=== PATIENT | female | born 1985 | race Asian ===

== ENCOUNTER 2016-12-13 18:13 | Emergency (ER) | payer MEDICAID ==
[2016-12-13 18:47] VITALS: BP 125/76
[2016-12-13] MEDS ORDERED: TRAMADOL HCL 50 MG TABLET PO ONE (19:13)
--- NOTE | 2016-12-13 19:14 | ER Document Report ---
ED Medical Screen (RME) - General Chief Complaint: Ankle Swelling Stated Complaint: LEG AND FEET PAIN, SWELLING Time Seen by Provider: 12/13/16 19:13 Notes: Patient reports 2 days of bilateral leg swelling. She states her legs feel tight and hurt. She says they have been swelling equally. She states that she has had no chest pain or shortness of breath. No history of DVTs. No cough or cold. She states she has not missed any menstrual cycles. She has not had a similar problem previously. She states she has not gained any weight and does not believe she is retaining fluid anywhere else. TRAVEL OUTSIDE OF THE [place] IN LAST 30 DAYS: No - Related Data Allergies/Adverse Reactions: No Known Allergies Allergy (Verified 12/13/16 18:45) Past Medical History Renal/ Medical History: Denies: Hx Peritoneal Dialysis Musculoskeltal Medical History: Reports Hx Fibromyalgia Psychiatric Medical History: Reports: Hx Bipolar Disorder, Hx Depression Past Surgical History: Reports: Hx Gynecologic Surgery - Immunizations Hx Diphtheria, Pertussis, Tetanus Vaccination: No Physical Exam - Vital signs Vitals: Temp Pulse BP Pulse Ox 98.4 F 92 125/76 99 12/13/16 18:46 12/13/16 18:46 12/13/16 18:46 12/13/16 18:46 Course - Vital Signs Vital signs: Temp Pulse Resp BP Pulse Ox 98.4 F 92 125/76 99 12/13/16 18:46 12/13/16 18:46 12/13/16 18:46 12/13/16 18:46
[2016-12-13 20:08] LABS: APPEARANCE,URINE SLIGHTLY-CLOUDY; BILIRUBIN,URINE NEGATIVE (NEGATIVE); GLUCOSE, URINE NEGATIVE (NEGATIVE); KETONES,URINE 20 mg/dL (NEGATIVE); LEUKOCYTE ESTERASE,URINE NEGATIVE (NEGATIVE); NITRITE,URINE POSITIVE (NEGATIVE); PROTEIN,URINE 30 mg/dL (NEGATIVE); URINE SPECIFIC GRAVITY 1.025
--- NOTE | 2016-12-13 20:08 | ER Document Report ---
ED Extremity Problem, Lower - General Chief Complaint: Ankle Swelling Stated Complaint: LEG AND FEET PAIN, SWELLING Time Seen by Provider: 12/13/16 19:13 Mode of Arrival: Ambulatory Information source: Patient Notes: Patient presents complaining of bilateral lower extremity swelling and pain for the past 4 days. Patient denies any chest pain or shortness of breath. Patient denies any recent travel or immobilization. Patient denies any history of PE or DVT in the past. Patient states that she was recently released after 2 -1/2 years in shelter. Patient states that while she was in shelter she had been treated for a UTI. TRAVEL OUTSIDE OF THE [place] IN LAST 30 DAYS: No - HPI Patient complains to provider of: Pain, Swelling Location: Leg Occurred: Other - 4 days Onset/Duration: Gradual Quality of pain: Achy, Sharp Pain Level: 4 Context: denies: Recent immobilization, Recent surgery, Recent travel Recent injury: No Associated symptoms: denies: Chest pain, Fever, Short of breath, Sweaty, Unable to bear weight, Weak Exacerbated by: Nothing Relieved by: Nothing - Related Data Allergies/Adverse Reactions: No Known Allergies Allergy (Verified 12/13/16 18:45) Past Medical History - General Information source: Patient - Social History Smoking Status: Current Every Day Smoker Frequency of alcohol use: None Drug Abuse: None Occupation: None Family History: Reviewed & Not Pertinent Patient has suicidal ideation: No Patient has homicidal ideation: No Renal/ Medical History: Denies: Hx Peritoneal Dialysis Musculoskeltal Medical History: Reports Hx Fibromyalgia Psychiatric Medical History: Reports: Hx Bipolar Disorder, Hx Depression Past Surgical History: Reports: Hx Gynecologic Surgery - Immunizations Hx Diphtheria, Pertussis, Tetanus Vaccination: No Review of Systems - Review of Systems Constitutional: Recent illness - Recent UTI. denies: Fever EENT: No symptoms reported Cardiovascular: No symptoms reported Respiratory: No symptoms reported. denies: Cough, Short of breath Gastrointestinal: No symptoms reported. denies: Abdominal pain, Vomiting Genitourinary: No symptoms reported. denies: Dysuria, Flank pain Female Genitourinary: No symptoms reported Musculoskeletal: Muscle pain - Bilateral lower extremities, Leg swelling. denies: Back pain Skin: No symptoms reported Hematologic/Lymphatic: No symptoms reported Neurological/Psychological: No symptoms reported Physical Exam - Vital signs Vitals: Temp Pulse BP Pulse Ox 98.4 F 92 125/76 99 12/13/16 18:46 12/13/16 18:46 12/13/16 18:46 12/13/16 18:46 - General General appearance: Appears well, Alert In distress: None - HEENT Head: Normocephalic, Atraumatic Eyes: Normal Conjunctiva: Normal Nasal: Normal Mouth/Lips: Normal Mucous membranes: Normal Neck: Normal, Supple. No: Lymphadenopathy - Respiratory Respiratory status: No respiratory distress Chest status: Nontender Breath sounds: Normal. No: Rales, Rhonchi, Stridor, Wheezing Chest palpation: Normal - Cardiovascular Rhythm: Regular. No: Tachycardia Heart sounds: S1 appreciated, S2 appreciated Murmur: No - Back Back: Normal, Nontender - Extremities General upper extremity: Normal inspection, Normal ROM General lower extremity: Tender, Edema - bilat calves, ankles, feet, Normal color, Normal strength, Normal temperature - Neurological Neuro grossly intact: Yes Cognition: Normal Juan David Coma Scale Eye Opening: Spontaneous [place] Coma Scale Verbal: Oriented [place] Coma Scale Motor: Obeys Commands [place] Coma Scale Total: 15 - Psychological Associated symptoms: Normal affect, Normal mood - Skin Skin Temperature: Warm Skin Moisture: Dry Skin Color: Normal Skin irregularity: other - Track shelby to bilateral upper extremities Course - Re-evaluation Re-evalutation: 12/13/16 23:44 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 Agrees with plan to give short course of diuretic. Patient tearful crying demanding that she get pain medication while here. Patient only 5 minutes prior had been sleeping soundly and snoring when provider had come by patient's room. - Vital Signs Vital signs: Temp Pulse Resp BP Pulse Ox 98.4 F 92 125/76 99 12/13/16 18:46 12/13/16 18:46 12/13/16 18:46 12/13/16 18:46 - Laboratory Result Diagrams: 12/13/16 20:25 12/13/16 20:25 Laboratory results interpreted by me: 12/13/16 12/13/16 12/13/16 19:40 20:25 20:25 AST 48 H NT-Pro-B Natriuret Pep 247 H Urine Protein 30 H Urine Ketones 20 H Urine Blood SMALL H Urine Nitrite POSITIVE H Urine Urobilinogen 2.0 H Labs- Entire Visit 12/13/16 12/13/16 12/13/16 19:40 20:25 20:25 WBC 6.2 RBC 4.14 Hgb 13.2 Hct 39.0 MCV 94 MCH 32.0 MCHC 33.9 RDW 13.3 Plt Count 260 Seg Neutrophils % 54.3 Lymphocytes % 33.8 Monocytes % 7.4 Eosinophils % 3.9 Basophils % 0.6 Absolute Neutrophils 3.4 Absolute Lymphocytes 2.1 Absolute Monocytes 0.5 Absolute Eosinophils 0.2 Absolute Basophils 0.0 Sodium 143.3 Potassium 4.1 Chloride 105 Carbon Dioxide 24 Anion Gap 14 BUN 8 Creatinine 0.72 Est GFR ( Amer) > 60 Est GFR (Non-Af Amer) > 60 Glucose 83 Calcium 9.9 Total Bilirubin 0.7 Direct Bilirubin 0.4 Indirect Bilirubin Not Reportable Neonat Total Bilirubin Not Reportable AST 48 H ALT 39 Alkaline Phosphatase 45 NT-Pro-B Natriuret Pep Total Protein 7.2 Albumin 4.3 Urine Color YELLOW Urine Appearance SLIGHTLY-CLOUDY Urine pH 7.0 Ur Specific [place] 1.025 Urine Protein 30 H Urine Glucose (UA) NEGATIVE Urine Ketones 20 H Urine Blood SMALL H Urine Nitrite POSITIVE H Urine Bilirubin NEGATIVE Urine Urobilinogen 2.0 H Ur Leukocyte Esterase NEGATIVE Urine WBC (Auto) 2 Urine RBC (Auto) 8 Urine Bacteria (Auto) 2+ Squamous Epi Cells Auto 2 Urine Mucus (Auto) MANY Urine Ascorbic Acid NEGATIVE Urine HCG, Qual NEGATIVE 12/13/16 20:25 WBC RBC Hgb Hct MCV MCH MCHC RDW Plt Count Seg Neutrophils % Lymphocytes % Monocytes % Eosinophils % Basophils % Absolute Neutrophils Absolute Lymphocytes Absolute Monocytes Absolute Eosinophils Absolute Basophils Sodium Potassium Chloride Carbon Dioxide Anion Gap BUN Creatinine Est GFR ( Amer) Est GFR (Non-Af Amer) Glucose Calcium Total Bilirubin Direct Bilirubin Indirect Bilirubin Neonat Total Bilirubin AST ALT Alkaline Phosphatase NT-Pro-B Natriuret Pep 247 H Total Protein Albumin Urine Color Urine Appearance Urine pH Ur Specific [place] Urine Protein Urine Glucose (UA) Urine Ketones Urine Blood Urine Nitrite Urine Bilirubin Urine Urobilinogen Ur Leukocyte Esterase Urine WBC (Auto) Urine RBC (Auto) Urine Bacteria (Auto) Squamous Epi Cells Auto Urine Mucus (Auto) Urine Ascorbic Acid Urine HCG, Qual - Diagnostic Test Radiology reviewed: Reports reviewed Discharge - Discharge Clinical Impression: Peripheral edema, Leg pain, bilateral UTI (urinary tract infection) Qualifiers: Urinary tract infection type: site unspecified Hematuria presence: with hematuria Qualified Code(s): N39.0 - Urinary tract infection, site not specified Condition: Stable Disposition: HOME, SELF-CARE Instructions: Anti-Inflammatory Medication ([facility]), Lasix, Trimethoprim-Sulfa ( [facility]), Urinary Tract Infection ([facility]) Additional Instructions: Return immediately for any new or worsening symptoms Followup with your primary care provider, call tomorrow to make a followup appointment wear compression stockings to help with leg swelling Elevate your extremities when you are not up Prescriptions: Furosemide [Lasix 20 mg Tablet] 20 mg PO DAILY #4 tablet Naproxen [Naprosyn 250 Nmg Tablet] 1 tab PO BID #14 tablet Sulfamethoxazole/Trimethoprim [Bactrim Ds Tablet] 1 each PO BID #10 tablet Forms: Return to School Referrals: [facility] [Provider Group] - Follow up tomorrow
[2016-12-13 20:38] LABS: ABSOLUTE EOSINOPHILS # (AUTO) 0.2 10^3/uL (0.0-0.6); ABSOLUTE LYMPHOCYTES (AUTO) 2.1 10^3/uL (0.5-4.7); ABSOLUTE MONOCYTES (AUTO) 0.5 10^3/uL (0.1-1.4); ABSOLUTE NEUT (AUTO) 3.4 10^3/uL (1.7-8.2); BASOPHILS % (AUTO) 0.6 % (0-2); EOSINOPHILS % (AUTO) 3.9 % (0-6); HEMOGLOBIN 13.2 g/dL (12.0-15.5); HGB HCT DIFFERENCE 0.6; LYMPHOCYTES % (AUTO) 33.8 % (13-45); MEAN CORPUSCULAR HGB CONC 33.9 g/dL (32.0-36.0); MEAN CORPUSCULAR VOLUME 94 fl (80-97); MONOCYTES % (AUTO) 7.4 % (3-13); RED BLOOD COUNT 4.14 10^6/uL (3.72-5.28); RED CELL DISTRIBUTION WIDTH 13.3 % (11.5-14.0); SEGMENTED NEUTROPHILS % (AUTO) 54.3 % (42-78); WHITE BLOOD COUNT 6.2 10^3/uL (4.0-10.5)
[2016-12-13 21:03] LABS: ALANINE AMINOTRANSFERASE 39 U/L (9-52); ALBUMIN 4.3 g/dL (3.5-5.0); ALKALINE PHOSPHATASE 45 U/L (38-126); ANION GAP 14 (5-19); ASPARTATE AMINO TRANSFERASE 48 U/L (14-36); BILIRUBIN,DIRECT 0.4 mg/dL (0.0-0.4); BILIRUBIN,TOTAL 0.7 mg/dL (0.2-1.3); BLOOD UREA NITROGEN 8 mg/dL (7-20); CALCIUM 9.9 mg/dL (8.4-10.2); CARBON DIOXIDE 24 mmol/L (22-30); CHLORIDE 105 mmol/L (98-107); CREATININE RESULT 0.72 mg/dL (0.52-1.25); GLUCOSE 83 mg/dL (75-110); POTASSIUM 4.1 mmol/L (3.6-5.0); SODIUM 143.3 mmol/L (137-145); TOTAL PROTEIN 7.2 g/dL (6.3-8.2)
[2016-12-13] MEDS ORDERED: SULFAMETHOXAZOLE/TRIMETHOPRIM 800-160 MG TABLET PO ONE (23:49)
[2016-12-14] MEDS ORDERED: SULFAMETHOXAZOLE/TRIMETHOPRIM 800-160 MG TABLET PO ONE (00:12)
[2016-12-14] MEDS ORDERED: FUROSEMIDE 20 MG TABLET PO ONE (00:12)
[2016-12-14] MEDS ORDERED: NAPROXEN 250 MG TABLET PO ONE (00:13)
--- NOTE | 2016-12-14 12:13 | XCELERA REPORT ---
[address] [address] Lower Extremity Venous Evaluation Name: JULIA SLAUGHTER Age: 31 yrs Gender: Female : 1985 Patient Status: Emergency Patient Location: ER Study Date: 12/13/2016 09:12 PM Procedure: Color flow and duplex imaging bilaterally of the veins of the lower extremities as well as the Common Femoral veins. Reason For Study: bilat LE pain, swelling Ordering Physician: MARISOL LOOB Performed By: Arlene Alicea Right Sided Venous Evaluation Normal vessel filling wall to wall, compression and augmentation as well as Colour flow down to the infrageniculate veins. Left Sided Venous Evaluation Normal vessel filling wall to wall, compression and augmentation as well as Colour flow down to the infrageniculate veins. Critical Findings Discussed with Elizabeth Lobo in the ER. Interpretation Summary No duplex evidence of DVT or obstruction in the bilateral lower extremities. : MARISOL LOBO > Mihir Barillas
== END 2016-12-14 00:31 | disposition home or self-care (01) ==
LOC: ER 18:13
DX: R60.0 Localized edema (principal); N39.0 Urinary tract infection, site not specified; R31.9 Hematuria, unspecified; M79.1 Myalgia; F17.200 Nicotine dependence, unspecified, uncomplicated
CPT/HCPCS: 99284; 36415; 87086; 85025; 81025; 87088; 80053; 81001; 87186; 83880; 93970 ×2; J3490 ×3

== ENCOUNTER 2018-02-03 15:11 | Emergency (ER) | payer SELFPAY ==
[2018-02-03] MEDS ORDERED: ONDANSETRON HCL INJ/PF 4 MG/2 ML SDV IV ONE (15:34)
[2018-02-03] MEDS ORDERED: KETOROLAC TROMETHAMINE INJ/PF 30 MG/1 ML SDV IV ONE (15:34)
--- NOTE | 2018-02-03 15:35 | ER Document Report ---
ED Medical Screen (RME) - General Chief Complaint: Nausea/Vomiting/Diarrhea Stated Complaint: VOMITING Time Seen by Provider: 02/03/18 15:30 TRAVEL OUTSIDE OF THE [place] IN LAST 30 DAYS: No - HPI Notes: 02/03/18 15:35 Nausea vomiting diarrhea ongoing for approximate 24 hours - Related Data Allergies/Adverse Reactions: No Known Allergies Allergy (Verified 12/13/16 18:45) Past Medical History Renal/ Medical History: Denies: Hx Peritoneal Dialysis Musculoskeltal Medical History: Reports Hx Fibromyalgia Psychiatric Medical History: Reports: Hx Bipolar Disorder, Hx Depression Past Surgical History: Reports: Hx Gynecologic Surgery - Immunizations Hx Diphtheria, Pertussis, Tetanus Vaccination: No Review of Systems - Review of Systems Gastrointestinal: Abdominal pain, Diarrhea, Nausea, Vomiting Physical Exam - Vital signs Vitals: Temp Pulse Resp BP Pulse Ox 98.5 F 74 24 H 121/83 98 02/03/18 15:16 02/03/18 15:16 02/03/18 15:16 02/03/18 15:16 02/03/18 15:16 - Respiratory Respiratory status: No respiratory distress Chest status: Nontender Breath sounds: Normal Chest palpation: Normal - Cardiovascular Rhythm: Regular Heart sounds: Normal auscultation Course - Vital Signs Vital signs: Temp Pulse Resp BP Pulse Ox 98.5 F 74 24 H 121/83 98 02/03/18 15:16 02/03/18 15:16 02/03/18 15:16 02/03/18 15:16 02/03/18 15:16
[2018-02-03] MEDS: NORMAL SALINE 1000 ML 1,000 ML IV PRN ×2 (16:15→18:07)
[2018-02-03 16:31] LABS: APPEARANCE,URINE CLOUDY; BILIRUBIN,URINE NEGATIVE (NEGATIVE); COLOR,URINE YELLOW; GLUCOSE, URINE NEGATIVE (NEGATIVE); KETONES,URINE 80 mg/dL (NEGATIVE); LEUKOCYTE ESTERASE,URINE NEGATIVE (NEGATIVE); NITRITE,URINE NEGATIVE (NEGATIVE); PROTEIN,URINE 30 mg/dL (NEGATIVE); URINE SPECIFIC GRAVITY 1.028; UROBILINOGEN,URINE NEGATIVE mg/dL (<2.0)
--- NOTE | 2018-02-03 16:40 | ER Document Report ---
ED GI/ - General Chief Complaint: Nausea/Vomiting/Diarrhea Stated Complaint: VOMITING Time Seen by Provider: 02/03/18 15:30 Mode of Arrival: Ambulatory Information source: Patient, Relative Notes: She comes in with a complaint of 2-day onset of nausea and vomiting. She has had only 2 bouts of diarrhea. Patient states that her abdominal pain started after she has been vomiting so much as as her back pain. She states her body hurts all over from the retching she has been doing. Patient's only past pertinent medical history is that she has had a ectopic back in 2013. At this time her pain and discomfort is diffuse. Patient states that whenever she tries to eat or drink anything it comes right back up. TRAVEL OUTSIDE OF THE [place] IN LAST 30 DAYS: No - HPI Patient complains to provider of: Abdominal pain Onset: Other Timing/Duration: Sudden - 2 days, Persistent, Worse Quality of pain: Achy Severity at maximum: Moderate Severity in ED: Moderate Pain Level: 3 Location: LUQ, LLQ, RUQ, RLQ, Left flank, Right flank, Low back, Suprapubic : 19 Sexual history: Active Associated symptoms: Chills, Diarrhea, Dizzy, Nausea, Vomiting Exacerbated by: Food Relieved by: Other - N.p.o. Similar symptoms previously: No Recently seen / treated by doctor: No - Related Data Allergies/Adverse Reactions: No Known Allergies Allergy (Verified 12/13/16 18:45) Past Medical History - General Information source: Patient - Social History Smoking Status: Current Every Day Smoker Cigarette use (# per day): Yes - Half-pack a day Chew tobacco use (# tins/day): No Smoking Education Provided: Yes Frequency of alcohol use: None Drug Abuse: Marijuana Family History: Reviewed & Not Pertinent Patient has suicidal ideation: No Patient has homicidal ideation: No Renal/ Medical History: Denies: Hx Peritoneal Dialysis Musculoskeletal Medical History: Reports Hx Fibromyalgia Psychiatric Medical History: Reports: Hx Bipolar Disorder, Hx Depression Past Surgical History: Reports: Hx Gynecologic Surgery - Immunizations Hx Diphtheria, Pertussis, Tetanus Vaccination: No Review of Systems - Review of Systems -: Yes ROS unobtainable due to patient's medical condition Constitutional: No symptoms reported, Chills EENT: No symptoms reported Cardiovascular: No symptoms reported Respiratory: No symptoms reported Gastrointestinal: Abdominal pain, Diarrhea, Nausea, Vomiting Genitourinary: No symptoms reported Female Genitourinary: No symptoms reported Musculoskeletal: No symptoms reported Skin: No symptoms reported Hematologic/Lymphatic: No symptoms reported Neurological/Psychological: No symptoms reported -: Yes All other systems reviewed and negative Physical Exam - Vital signs Vitals: Temp Pulse Resp BP Pulse Ox 98.5 F 74 24 H 121/83 98 02/03/18 15:16 02/03/18 15:16 02/03/18 15:16 02/03/18 15:16 02/03/18 15:16 Interpretation: Normal - Notes Notes: Patient is a well-nourished well-developed female on physical exam is in no apparent distress. - General General appearance: Appears well, Alert - HEENT Head: Normocephalic, Atraumatic Eyes: Normal Pharynx: Normal. No: Blood in hypopharynx, Erythema, Exudate, Peritonsillar abscess, Post nasal drainage, Retropharyngeal abscess, Tonsillar hypertrophy, Uvular edema, Potential airway comprom. Neck: Normal, Lymphadenopathy, Supple. No: Anterior cervical chain, Posterior cervical chain, Meningismus - Respiratory Respiratory status: No respiratory distress Chest status: Nontender Breath sounds: Normal. No: Rales, Rhonchi, Stridor, Wheezing Chest palpation: Normal - Cardiovascular Rhythm: Regular Heart sounds: Normal auscultation Murmur: No - Abdominal Inspection: Normal Distension: No distension Bowel sounds: Normal Tenderness: Tender, Other - Examination of patient's abdomen shows her to be no specific area of tenderness. She has moderate amount of tenderness throughout the entire abdomen. She has bowel sounds in all 4 quads. Patient is using her muscles to go from laying to sitting had no discomfort or pain. She has no flank pain to percussion.. No: McBurney's point, Rodriguez's sign, Guarding, Rebound Organomegaly: No organomegaly - Back Back: Normal, Nontender. No: Tender, Deformity/step-off, CVA tenderness, Vertebra tenderness - Extremities General upper extremity: Normal inspection, Nontender, Normal ROM, Normal strength General lower extremity: Normal inspection, Nontender, Normal ROM, Normal strength - Neurological Neuro grossly intact: Yes Cognition: Normal Orientation: AAOx4 Juan David Coma Scale Eye Opening: Spontaneous [place] Coma Scale Verbal: Oriented [place] Coma Scale Motor: Obeys Commands [place] Coma Scale Total: 15 Speech: Normal - Skin Skin Temperature: Warm Skin Moisture: Dry Skin Color: Normal, [place], Pale Course - Re-evaluation Re-evalutation: 02/03/18 20:05 Patient's length of stay here is been extended secondary to dehydration. Also because it is been secondary to pain. After initially treating patient for her volume depletion and for pain I was informed by patient and her spouse that she has been taking 15 mg of Percocet 3 times a day up to about 4 days ago then he energy being and said 2 days ago so patient is probably withdrawing from the opiates at this point. I have agreed to give her some nausea medication both Phenergan oral and suppositories and to provide some clonidine for her. I did in the emergency room give her a milligram of Ativan because she was already starting to go with through major withdrawal symptomatology but I told him I would not write it outpatient. I told him that they will be going from 1 cracks to another and I was not going to do that. I informed her that this is not going to be an easy feet to manage and that there are clinics out there that can help if she needs it. [facility] the facilities [facility] people [facility] - Vital Signs Vital signs: Temp Pulse Resp BP Pulse Ox 98 F 60 18 124/86 H 100 02/03/18 18:11 02/03/18 18:11 02/03/18 18:11 02/03/18 18:11 02/03/18 18:11 - Laboratory Result Diagrams: 02/03/18 18:05 02/03/18 18:05 Laboratory results interpreted by me: 02/03/18 02/03/18 02/03/18 16:15 18:05 18:05 WBC 12.0 H Plt Count 467 H Seg Neutrophils % 81.9 H Absolute Neutrophils 9.8 H Chloride 111 H Carbon Dioxide 19 L Urine Protein 30 H Urine Ketones 80 H Urine Blood LARGE H Discharge - Discharge Clinical Impression: Dehydration, Opiate withdrawal Condition: Stable Disposition: HOME, SELF-CARE Instructions: Dehydration ([facility]) Additional Instructions: As we discussed if this is withdrawal symptomatology there is hardly anything for us to do here. We can keep her hydrated and when we can attempt to give her some anxiety medications and fluids but we do not do withdrawals out of the ER. There are 2 facilities in the area one is [facility] and the other one is [facility]. I do not personally have the numbers for these places but they are available on the websites and/or phone book. I aggressive prior with clonidine which should help with the reaction and as well as the Phenergan suppositories and oral form of Phenergan to keep the nausea down. The body pain is going to happen and there is not much we can do about it. I will give you an muscle relaxer to help ease the leg pain. Should you have any concerns or problems return to ER for recheck. Prescriptions: Promethazine HCl [Phenergan 25 mg Tablet] 25 mg PO Q4HP PRN #20 tablet PRN Reason: Clonidine HCl 0.1 mg PO BID #20 tablet Promethazine HCl [Phenergan 25 mg Supp.rect] 1 supp LA Q6H #12 supp.rect Forms: Elevated Blood Pressure, Smoking Cessation Education
[2018-02-03] MEDS ORDERED: PROMETHAZINE HCL INJ 25 MG/1 ML VIAL IV ONE (16:55)
[2018-02-03] MEDS ORDERED: MORPHINE SULFATE 10 MG/ML INJ IV ONE (17:43)
[2018-02-03 18:16] LABS: ABSOLUTE BASOPHILS # (AUTO) 0.1 10^3/uL (0.0-0.2); ABSOLUTE LYMPHOCYTES (AUTO) 1.7 10^3/uL (0.5-4.7); ABSOLUTE MONOCYTES (AUTO) 0.4 10^3/uL (0.1-1.4); ABSOLUTE NEUT (AUTO) 9.8 10^3/uL (1.7-8.2); BASOPHILS % (AUTO) 0.6 % (0-2); EOSINOPHILS % (AUTO) 0.2 % (0-6); HEMATOCRIT 39.1 % (36.0-47.0); HEMOGLOBIN 13.4 g/dL (12.0-15.5); LYMPHOCYTES % (AUTO) 14.2 % (13-45); MEAN CORPUSCULAR HEMOGLOBIN 31.9 pg (27.0-33.4); MEAN CORPUSCULAR HGB CONC 34.2 g/dL (32.0-36.0); MEAN CORPUSCULAR VOLUME 93 fl (80-97); MONOCYTES % (AUTO) 3.1 % (3-13); PLATELET COUNT 467 10^3/uL (150-450); RED BLOOD COUNT 4.19 10^6/uL (3.72-5.28); RED CELL DISTRIBUTION WIDTH 12.8 % (11.5-14.0); SEGMENTED NEUTROPHILS % (AUTO) 81.9 % (42-78); TOTAL CELLS COUNTED % (AUTO) 100 %
[2018-02-03 18:31] LABS: ALANINE AMINOTRANSFERASE 17 U/L (9-52); ALBUMIN 4.5 g/dL (3.5-5.0); ALKALINE PHOSPHATASE 61 U/L (38-126); ANION GAP 13 (5-19); ASPARTATE AMINO TRANSFERASE 24 U/L (14-36); BILIRUBIN,DIRECT 0.2 mg/dL (0.0-0.4); BILIRUBIN,TOTAL 0.6 mg/dL (0.2-1.3); BLOOD UREA NITROGEN 10 mg/dL (7-20); CALCIUM 9.7 mg/dL (8.4-10.2); CARBON DIOXIDE 19 mmol/L (22-30); CHLORIDE 111 mmol/L (98-107); GLUCOSE 93 mg/dL (75-110); LIPASE 48.8 U/L (23-300); POTASSIUM 4.3 mmol/L (3.6-5.0); SODIUM 142.7 mmol/L (137-145)
[2018-02-03] MEDS ORDERED: LORAZEPAM INJ 2 MG/1 ML VIAL IV ONE (19:26)
[2018-02-03] MEDS ORDERED: CLONIDINE HCL 0.1 MG TABLET PO ONE (19:26)
[2018-02-03 20:37] VITALS: BP 125/81
== END 2018-02-03 20:37 | disposition home or self-care (01) ==
LOC: ER 15:11
DX: E86.0 Dehydration (principal); F11.23 Opioid dependence with withdrawal; G25.81 Restless legs syndrome; R19.7 Diarrhea, unspecified; R11.2 Nausea with vomiting, unspecified; F17.210 Nicotine dependence, cigarettes, uncomplicated
CPT/HCPCS: 99284; 96361; 96374; 96375; 36415; 83690; 84703; 85025; 80053; 81001; J1885; J2270; J2060; J2550; J2405; J7030